=== PATIENT | female | born 1965 | race Caucasian/White ===

== ENCOUNTER 2018-06-21 16:13 | Emergency (ER) | payer BC ==
[2018-06-21] MEDS ORDERED: HYDROmorphone INJ1* 1 MG/ML SYRINGE IM ONE (16:40)
[2018-06-21] MEDS ORDERED: predniSONE TAB* 20 MG PO ONE (16:40)
[2018-06-21] MEDS ORDERED: predniSONE TAB* 20 MG ONE (17:01)
[2018-06-21] MEDS ORDERED: Cyclobenzaprine TAB* 10 MG PO ONE (17:02)
--- NOTE | 2018-06-21 17:07 | ED ---
Lower Extremity - HPI Summary HPI Summary: Patient complains of right hip pain 8 months, with radiation to right foot starting 1 month ago. Pain at worst 10/10. Patient remains ambulatory with pain. Patient was evaluated by orthopedics Dr. Valdez 1 week ago, x-rays of hip were negative. MRI appointment was set up for today at 1630 at [place]. Patient missed appointment as she came here due to intolerable pain. Hip pain and foot pain described as intermittent, dependent upon position and movement. Foot pain concentrated at second through fourth toes of right foot. Patient has not been taking medications for pain, states she has history of recurrent kidney stones and has been advised by nephrology not to take NSAIDs. Denies trauma, incontinence, urinary retention, fever, cough, sore throat, CP, SOB, N/V /D, abdominal pain, change in urine, change in BM. - History of Current Complaint Chief Complaint: EDExtremityLower Stated Complaint: RT HIP AND FOOT PAIN PER PT Time Seen by Provider: 06/21/18 16:25 Hx Obtained From: Patient Mechanism Of Injury: Unknown Onset/Duration: Weeks Severity Initially: Mild Severity Currently: Severe Pain Intensity: 8 Pain Scale Used: 0-10 Numeric Timing: Intermittent, Lasting Hours Location: Radiates To Character Of Pain: Sharp, Aching, Throbbing Associated Signs And Symptoms: Positive: Negative Aggravating Factor(s): Standing, Movement, Weight Bearing Alleviating Factor(s): Rest Able to Bear Weight: Yes - Allergies/Home Medications Allergies/Adverse Reactions: Allergies Allergy/AdvReac Type Severity Reaction Status Date / Time No Known Allergies Allergy Verified 06/21/18 16:20 Home Medications: Home Medications Levothyroxine Sodium 175 mcg PO DAILY 06/21/18 [History Confirmed 06/21/18] PMH/Surg Hx/FS Hx/Imm Hx Endocrine/Hematology History: Denies: Hx Anticoagulant Therapy Cardiovascular History: Denies: Hx Pacemaker/ICD History: Denies: Hx Dialysis Sensory History: Denies: Hx Eye Prosthesis Opthamlomology History: Denies: Hx Legally Blind EENT History: Denies: Hx Deafness Neurological History: Denies: Hx Dementia Psychiatric History: Denies: Hx Autism Infectious Disease History: No Infectious Disease History: Denies: Traveled Outside the [place] in Last 30 Days - Social History Alcohol Use: Occasionally Substance Use Type: Reports: None Smoking Status (MU): Never Smoked Tobacco Review of Systems Constitutional: Negative Eyes: Negative ENT: Negative Cardiovascular: Negative Respiratory: Negative Gastrointestinal: Negative Genitourinary: Negative Musculoskeletal: Other Skin: Negative Neurological: Negative Psychological: Normal All Other Systems Reviewed And Are Negative: Yes Physical Exam - Summary Physical Exam Summary: Patient flexes and extends right hip without indication of pain. No pain with palpation. No ecchymosis, erythema, deformity, swelling noted to right hip. Patient states pain is worse at right foot. No ecchymosis, erythema, swelling, deformity noted to right foot. Some moderate tenderness to palpation on dorsal surface of or chill foot, and plantar surface ball of foot. Calf soft nontender. PMS intact distally. Triage Information Reviewed: Yes Vital Signs On Initial Exam: Initial Vitals Temp Pulse Resp BP Pulse Ox 97.8 F 98 20 113/84 98 06/21/18 16:16 06/21/18 16:16 06/21/18 16:16 06/21/18 16:16 06/21/18 16:16 Vital Signs Reviewed: Yes Appearance: Positive: Well-Appearing Skin: Positive: Warm Head/Face: Positive: Normal Head/Face Inspection Neck: Positive: Supple Respiratory/Lung Sounds: Positive: Clear to Auscultation Cardiovascular: Positive: Normal Abdomen Description: Positive: Nontender Musculoskeletal: Positive: Normal Neurological: Positive: Normal Psychiatric: Positive: Normal AVPU Assessment: Alert - Urich Coma Scale Best Eye Response: 4 - Spontaneous Best Motor Response: 6 - Obeys Commands Best Verbal Response: 5 - Oriented Coma Scale Total: 15 Diagnostics - Vital Signs Vital Signs Temp Pulse Resp BP Pulse Ox 06/21/18 16:57 18 06/21/18 16:16 97.8 F 98 20 113/84 98 - Laboratory Lab Statement: Any lab studies that have been ordered have been reviewed, and results considered in the medical decision making process. Lower Extremity Course/Dx - Course Course Of Treatment: Patient complains of right hip pain 8 months, with radiation to right foot starting 1 month ago. Pain at worst 10/10. Patient remains ambulatory with pain. Patient was evaluated by orthopedics Dr. Valdez 1 week ago, x-rays of hip were negative. MRI appointment was set up for today at 1630 at [place]. Patient missed appointment as she came here due to intolerable pain. Hip pain and foot pain described as intermittent, dependent upon position and movement. Foot pain concentrated at second through fourth toes of right foot. Patient has not been taking medications for pain, states she has history of recurrent kidney stones and has been advised by nephrology not to take NSAIDs. Denies trauma, incontinence, urinary retention, fever, cough, sore throat, CP, SOB, N/V/D, abdominal pain, change in urine, change in BM. Physical exam:Patient flexes and extends right hip without indication of pain. No pain with palpation. No ecchymosis, erythema, deformity, swelling noted to right hip. Patient states pain is worse at right foot. No ecchymosis , erythema, swelling, deformity noted to right foot. Some moderate tenderness to palpation on dorsal surface of or chill foot, and plantar surface ball of foot. Calf soft nontender. PMS intact distally. Called office outpatient orthopedist Dr. Valdez. Nurse on-call stated Dr. Carballo had left for the day and was not available nor was his PA. Nurse telephone interviewer stated patient would be worked into schedule tomorrow if patient called office early in the morning. Patient had already called office from here in the ED. Patient advised she needs to get MRI. Today's appointment for MRI will be rescheduled per office of Dr. Valdez. Patient given prescription for prednisone and pain control. Patient understands and approves plan. - Diagnoses Provider Diagnoses: Foot pain, right, Right hip pain Discharge - Sign-Out/Discharge Documenting (check all that apply): Patient Departure Patient Received Moderate/Deep Sedation with Procedure: No - Discharge Plan Condition: Stable Disposition: HOME Prescriptions: Oxycodone HCl 5 mg PO Q6H 2 Days #8 tablet MDD 4 tabs predniSONE TAB* [Deltasone 20 MG TAB*] 40 mg PO DAILY 5 Days #10 tab Patient Education Materials: Hip Pain (ED), Metatarsalgia (DC) Referrals: Kenji Porras MD [Primary Care Provider] - Additional Instructions: I've spoken with the office of your orthopedic Dr. Valdez and they've stated that if you call in the morning tomorrow they will fit you in tomorrow for further evaluation and to reset MRI appointment. Take prednisone and oxycodone as prescribed for pain. Return to the ED for any new or worsening symptoms. - Billing Disposition and Condition Condition: STABLE Disposition: Home
[2018-06-21 17:24] VITALS: BP 130/64
== END 2018-06-21 17:20 | disposition home or self-care (01) ==
LOC: ED 16:13
DX: M79.671 Pain in right foot (principal); M25.551 Pain in right hip
CPT/HCPCS: 96372; 99282; A9270-GY; J1170; J7512

== ENCOUNTER 2019-03-17 08:15 | Day surgery (SDC) | payer BC ==
[~2019-03-17 08:15] MED LIST: Acetaminophen TAB* 325 MG PO ONE; Buffered Lidocaine 1% SYRIN* 1 ML/SYRINGE INTRADERM ONE; Lactated Ringers 1000 ML Bag* 1,000 ML IV SCH
[2019-03-17] MEDS ORDERED: ceFAZolin 2 GM PREMIX in ORs 2 GM/50 ML BAG ONE (08:42)
[2019-03-17] MEDS ORDERED: Buffered Lidocaine 1% SYRIN* 1 ML/SYRINGE INTRADERM ONE (08:42)
[2019-03-17] MEDS ORDERED: Acetaminophen TAB* 325 MG ONE (08:43)
[2019-03-17] MEDS ORDERED: Lidocaine 2% PF * 5 ML VIAL ONE ×3 (09:39→10:39)
[2019-03-17] MEDS ORDERED: Midazolam* 1 MG/ML 2 ML VIAL (2 MG) ONE (09:39)
[2019-03-17] MEDS ORDERED: Propofol* 500 MG/50 ML BTL ONE (09:39)
[2019-03-17] MEDS ORDERED: fentaNYL* 50 MCG/ML 2 ML VIAL (100 MCG VIAL) ONE (10:23)
[2019-03-17] MEDS ORDERED: HYDROmorphone INJ1* 1 MG/ML SYRINGE IV PRN (10:44)
[2019-03-17] MEDS ORDERED: Naloxone* 0.4 MG/ML 1 ML VIAL IV PRN (10:44)
[2019-03-17] MEDS ORDERED: oxyCODONE TAB* 5 MG TAB PO PRN (10:44)
[2019-03-17] MEDS ORDERED: PROCHLORPERAZINE INJ 5 MG/ML 2 ML VIAL IV PRN (10:44)
[2019-03-17] MEDS ORDERED: Ondansetron INJ* 2 MG/ML VIAL IV PRN (10:44)
--- NOTE | 2019-03-17 11:03 | OP ---
Operative Report - Blank - Operative Report Date of Operation: 03/17/19 Note: PATIENT: Irma Childers DATE OF : 1965 DATE OF SURGERY: 03/17/2019 SURGEON: Tyson Mclean MD RECORDS ASSOCIATE: FRAN Steward, whos assistance was necessary for positioning, retraction, help with instrumentation, and closure. ANESTHESIOLOGIST: Dr. 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 Both operative and non-operative treatment alternatives were reviewed. Further, the nature and risks of surgery were reviewed in careful detail. Our discussions regarding the risks of surgery included, but were not limited to, infection, wound problems, nerve injury, recurrent neuroma, RSD, persistent symptoms, blood clot, need for further surgery, failure of the surgery, and even the remote chance of catastrophic complication. DESCRIPTION OF PROCEDURE: The patient was seen in the preoperative holding unit and informed written consent was obtained. The appropriate extremity was marked. The patient was then brought to the operating room and carefully positioned on the operating room table. Anesthesia was induced. All bony prominences were padded with great care. A chlorhexidine based pre-scrub was performed followed by a chloraprep prep and drape in standard sterile fashion. A surgical safety pause was then conducted in which we confirmed the appropriate patient, extremity, planned procedure, availability of equipment, indication and administration of prophylactic antibiotics, and DVT prophylaxis in the form of a compression boot on the non-surgical extremity. I began with an Esmarch exsanguination of the limb and placement of an ankle Esmarch tourniquet. I then made an approximately 3 cm incision in the right 3-4 intermetatarsal web space dorsally. I carried this dissection down through the soft tissue and dissected down between the metatarsal heads. I utilized a laminar manager voice to gently spread the metatarsal heads apart. I then placed a Jefferson elevator underneath the intermetatarsal ligament and transected this sharply. I exposed the interdigital nerve where there was some swelling consistent with a neuroma. I then transected the nerve distally. At this point, I gently pulled traction on the nerve and dissected proximally into the plantar aspect of the foot underneath the interossei and the lumbrical. I then transected the nerve as far proximal as was possible and buried the proximal stump in the deep musculature. At this point, the tourniquet was removed. Hemostasis was obtained and there was no significant bleeding encountered. We then irrigated copiously and closed in layers utilizing 3-0 Monocryl for the subdermal layer and 3-0 nylon for the skin. A sterile dressing was then applied. The patient was then awakened from anesthesia and transferred to the recovery room in stable condition. There were no complications. All needle and sponge counts were correct at the end of the case. ATTESTATION: I attest I was present and scrubbed and performed the critical portions of the procedure myself. POSTOPERATIVE PLAN: The plan is for heel weight-bearing for 2 weeks. Follow-up will be in 2 weeks for likely suture removal. We will then progress weight- bearing.
[2019-03-17] MEDS ORDERED: Gabapentin CAP(*) 300 MG ONE (11:17)
[2019-03-17] MEDS ORDERED: Gabapentin CAP(*) 300 MG PO ONE (12:00)
[2019-03-17] MEDS ORDERED: oxyCODONE TAB* 5 MG TAB ONE (12:06)
[2019-03-17 12:15] VITALS: BP 135/71
== END 2019-03-17 12:35 | disposition home or self-care (01) ==
LOC: OR 08:15
PROVIDERS: ATTEND Orthopaedic Surgery
DX: G57.61 Lesion of plantar nerve, right lower limb (principal); J45.909 Unspecified asthma, uncomplicated; E03.9 Hypothyroidism, unspecified
CPT/HCPCS: 88304; A9270-GY; J0690; J2250; J2704; J3010